=== PATIENT | male | born 1960 | race African-American/Black ===

== ENCOUNTER 2016-11-25 20:30 | Emergency (ER) | payer OTHER ==
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
== END 2016-11-25 21:30 | disposition home or self-care (01) ==
LOC: CFTX 20:30
DX: S61.213A Laceration without foreign body of left middle finger without damage to nail, initial encounter (principal); F17.210 Nicotine dependence, cigarettes, uncomplicated; I10 Essential (primary) hypertension; E11.9 Type 2 diabetes mellitus without complications; W26.0XXA Contact with knife, initial encounter; Y92.009 Unspecified place in unspecified non-institutional (private) residence as the place of occurrence of the external cause
CPT/HCPCS: 12001; 73140; 99283